=== PATIENT | female | born 1955 | race Caucasian/White ===

== ENCOUNTER 2018-04-15 13:31 | Outpatient (CLI) | payer BC | END 2018-04-15 13:32 | disposition home or self-care (01) | LOC: BICMAMMO 13:31 | PROVIDERS: ATTEND Obstetrics & Gynecology | DX: Z13.820 Encounter for screening for osteoporosis (principal); M81.0 Age-related osteoporosis without current pathological fracture; M85.859 Other specified disorders of bone density and structure, unspecified thigh; M85.88 Other specified disorders of bone density and structure, other site | CPT/HCPCS: 77080 ==

== ENCOUNTER 2018-05-21 06:47 | Day surgery (SDC) | payer BC ==
[2018-05-16 11:28] VITALS: BMI 30.1
[2018-05-21] MEDS ORDERED: Levofloxacin 500 mg/D5W 100 ml Premix Bag ONE (10:20)
[2018-05-21] MEDS ORDERED: Isosulfan Blue 50 MG/5 ML VIAL ONE (10:40)
[2018-05-21] MEDS ORDERED: Bupivacaine/Epinephrine 0.25% 30 ML VIAL ONE (10:40)
[2018-05-21] MEDS ORDERED: Fentanyl 100 MCG/2 ML VIAL ONE ×3 (10:47→12:53)
[2018-05-21] MEDS ORDERED: Midazolam HCl 2 mg/2 ml Vial ONE (10:47)
--- NOTE | 2018-05-21 11:41 | NM ---
NUCLEAR MEDICINE LYMPHOSCINTIGRAPHY: HISTORY: Right breast cancer. COMPARISON: None. TECHNIQUE: The patient was administered 0.440 millicuries of technetium 99m filtered sulfur colloid subcutaneous ly. FINDINGS: There is evidence of a sentinel lymph node in the right axilla. IMPRESSION: Right axillary sentinel lymph node. POS: [facility]
--- NOTE | 2018-05-21 14:51 | OP ---
DATE OF PROCEDURE: 05/21/2018 PREOPERATIVE DIAGNOSIS: Right breast cancer. SURGEON: Jorje Jimenez M.D. PROCEDURE PERFORMED: Lymphoscintigraphy, sentinel node biopsy and partial mastectomy. INDICATIONS: This is a 63-year-old female who on recent mammogram was found to have a new mass in th e inferior right breast at the 6 o'clock position. Core biopsy was positive for adenocarcinoma. FINDINGS: Two sentinel nodes were found. They were both negative by touch prep. The breast specime n did contain the clips and lesions by specimen mammography. PROCEDURE IN DETAIL: After informed consent was obtained, patient was taken to the operating room an d given general endotracheal anesthesia. She has undergone placement of radionucleotide as well as t he needle localization wire in Radiology. Lymphazurin 3 mL was infiltrated subareolar. Her right br east was prepped and draped in usual fashion. The Neoprobe was used and a baseline count of 12 was f ound. Transcutaneous counts of 25 were found in the right axilla. A transverse axillary incision wa s performed. Subcu divided sharply. The deltopectoral fascia was incised. A node with in vivo coun ts of 55 was found. This was blue and it was dissected out. Efferent and afferent lymphatics were l igated with 3-0 Vicryl ties. Ex vivo counts is 75, this was sent as sentinel node 1. There were res idual counts of about 18-20. A second node was found. This was dissected out. Efferent and afferen t lymphatics were ligated. The node sent as sentinel node #2. All residual counts were less than 5. Then, a triangular skin incision was performed in the midline of the right breast. Subcutaneous di vided sharply and the needle was found. It was brought through the lower skin into the field of the incision. This breast tissue was divided down to the fascia in a triangular manner and then excised off of the pectoralis fascia. The specimen was basically marked with the skin anterior, the needle i nferior, it was sent to mammography, which revealed it did contain both the clip and the lesion, sent to pathology for further analysis. Hemostasis was achieved with electrocautery. The breast was toby sed. The triangle was closed as reverse T. The superior portion was closed with interrupted 3-0 Greg ryl, then inferiorly transversely with interrupted 3-0 Vicryl and then Steri-Strips applied. By now, the lymph node came back both lymph nodes were negative by touch prep. Subcutaneous reapproximated with interrupted 3-0 Vicryl and skin closed with a running 4-0 Rapide. Steri-Strips applied. Steril e bandage applied. The patient tolerated the procedure well and was transferred to recovery in good condition. Sponge and needle count verified correct x2.
--- NOTE | 2018-05-21 15:23 | MMO ---
RIGHT BREAST NEEDLE LOCALIATION: HISTORY: Right breast cancer. FINDINGS: Successful right breast needle localization. A single 5 cm [place] needle and wire were used to perfor m the needle localization. The needle and wire were adjacent to both surgical clips. TECHNIQUE: Consent obtained to perform a right breast needle localization for surgery. The right breast was pool luated. Both surgical clips were identified. Under CC compression and via an inferior approach, a s tonja 5 cm [place] needle was placed, such that it was adjacent to both surgical clips. Wire position was confirmed in the lateral medial projection. The wire was deployed. A post deployment image was obtained. The images were marked. The patient tolerated the procedure well. There were no immediat e or post procedure complications. Of note, 1% Lidocaine, buffered with sodium bicarbonate, was used for local anesthesia. The right breast was prepped and draped in the usual sterile fashion. SPECIMEN RADIOGRAPH: The single specimen demonstrates the wire and both clips in the radiograph. Fi ndings were conveyed to Dr. Jimenez at the time of presentation. IMPRESSION: Successful needle localization of the right breast. POS: [facility]
== END 2018-05-21 14:25 | disposition home or self-care (01) ==
LOC: SDC 06:47
PROVIDERS: ATTEND Surgery
PROC: 0HBT0ZZ Excision of Right Breast, Open Approach (ICD-10-PCS; principal; 2018-05-21)
PROC: 07B50ZX Excision of Right Axillary Lymphatic, Open Approach, Diagnostic (ICD-10-PCS; principal; 2018-05-21)
DX: C50.811 Malignant neoplasm of overlapping sites of right female breast (principal); I10 Essential (primary) hypertension; Z79.899 Other long term (current) drug therapy; Z88.0 Allergy status to penicillin; Z17.1 Estrogen receptor negative status [ER-]
CPT/HCPCS: 19281; 76098; 78195; 88307; 88331; 88332; 88334; 88342; 96374; A9541; J1956; J2250; J3010; Q9968

== ENCOUNTER 2018-06-18 10:44 | Day surgery (SDC) | payer BC ==
[2018-06-17 11:53] VITALS: BMI 30.1
[2018-06-18 11:41] LABS: #Eosinphils 0.1 thou/uL (0.0-0.7); #Monocytes 0.4 thou/uL (0.11-0.59); #Neutrophils 3.9 thou/uL (1.40-6.50); %Basophils 0.5 % (0.0-1.0); %Eosinophils 1.4 % (0.0-10.0); %Monocytes 6.8 % (0.0-10.0); %Neutrophils 73.4 % (42.0-75.0); Hemoglobin 13.8 g/dL (12.0-16.0); Mean Corpuscular HGB CONC 32.6 g/dL (32.0-36.0); Mean Corpuscular Hemoglobin 28.5 pg (27.0-31.0); Mean Corpuscular Volume 87.5 fL (78.0-98.0); Mean Platelet Volume 8.9 fL (7.4-10.4); Platelet Count 256 thou/uL (130-400); Red Blood Cell (RBC) Count 4.85 mill/uL (4.20-5.40); White Blood Cell (WBC) Count 5.3 thou/uL (4.8-10.8)
[2018-06-18 12:07] LABS: ALT (SGPT) 15 U/L (8-55); AST (SGOT) 21 U/L (5-34); Albumin 4.2 g/dL (3.4-4.8); Alkaline Phosphatase 67 U/L (40-150); Anion Gap 11 mmol/L (10-20); BUN (Urea Nitrogen) 20 mg/dL (9.8-20.1); Bilirubin, Total 0.6 mg/dL (0.2-1.2); Calc. Creatinine Clearance 90 mL/min (70-130); Calcium 9.5 mg/dL (7.8-10.44); Carbon Dioxide 24 mmol/L (23-31); Chloride 102 mmol/L (98-107); Estimated GFR-MDRD 73; Globulin 2.9 g/dL (2.4-3.5); Glucose 108 mg/dL (80-115); Potassium 4.5 mmol/L (3.5-5.1); Protein, Total 7.1 g/dL (6.0-8.3); Sodium 132 mmol/L (136-145)
[2018-06-18] MEDS ORDERED: Midazolam HCl 2 mg/2 ml Vial ONE (12:17)
[2018-06-18] MEDS ORDERED: CEFAZOLIN/Water 2 GM/20 ML SYRINGE ONE (12:17)
[2018-06-18] MEDS ORDERED: Bupivacaine HCl 0.5%/Epinephrine 1:200,000/PF 30 ml Vial ONE (12:40)
[2018-06-18] MEDS ORDERED: Lidocaine 2% PF Inj 2 ML VIAL ONE (12:41)
[2018-06-18] MEDS ORDERED: Bupivacaine/Epinephrine 0.25% 30 ML VIAL ONE (12:41)
[2018-06-18] MEDS ORDERED: Fentanyl 100 MCG/2 ML VIAL ONE (12:46)
[2018-06-18] MEDS ORDERED: Levofloxacin 500 mg/D5W 100 ml Premix Bag ONE (12:53)
--- NOTE | 2018-06-18 14:44 | OP ---
PREOPERATIVE DIAGNOSIS: Right breast cancer with positive superior margin. SURGEON: Jorje Jimenez M.D. PROCEDURE PERFORMED: MediPort placement, left subclavian, reexcision of biopsy site, right breast. INDICATIONS: A 63-year-old female who underwent a needle localization lumpectomy with sentinel node biopsy had a positive superior margin, also needs access for chemotherapy. FINDINGS: I had a hard time getting the wire to go down into the superior vena cava, had to redo at a couple times and finally was able to be successful to get a good placement of the catheter in the superior vena cava. There was a defined seroma cavity which allowed me to be accurate on reexcision margins. PROCEDURE: After informed consent was obtained, the patient was taken to the operating room, started with the MediPort. Her chest and breasts were prepped and draped in usual fashion. The patient was placed in Trendelenburg position and local anesthesia infiltrated subcutaneously and deep and introd ucer needle was inserted in left subclavian with good backflow of venous blood. J-wire threaded easi ly. The fluoroscopy was then used that showed the wire going where I wanted it and a transverse ches t wall incision was performed. The subcu divided sharply. The fascia grasped down to the fascia. T hen a tunneling device was used to connect the two tunnels and the catheter brought through the tunne l. It was connected to the MediPort and the MediPort secured to the chest wall with interrupted 2-0 Prolene suture. Then the catheter was cut to size and the peel-away introducer inserted over the wir e. The wire was removed and the catheter inserted through the peel-away introducer. Then fluoroscop y again performed, but the catheter was not going down into the superior vena cava, it went straight across into the brachiocephalic, tried aspirating, really was very good flow through the port. Under fluoroscopy, I was able to redirect that catheter down into the superior vena cava and reflowed ever ything, no kinks access the port. Good backflow of venous blood, flushed easily with heparinized cece ine. Subcutaneous reapproximated with interrupted 3-0 Vicryl. Skin closed with a running subcuticul ar 4-0 Rapide. Steri-Strips applied. Sterile bandage applied. I then moved to the breast. Local a nesthesia infiltrated subcutaneously and deep. An incision was made in the inferior breast through t he old incision. Subcutaneous divided sharply down to the seroma cavity. The seroma cavity was exci sed with emphasis towards the superior and posterior aspects that area with some normal tissue was ex cised and marked with a blue suture superior, a black suture lateral, and a white suture anterior, se nt to pathology. Now after that was excised, I saw the remaining inferior and posterior seroma capsu le still there, so I wound up taking that out as a second specimen. Hemostasis was achieved utilizin g electrocautery and interrupted [id number] of 3-0 Vicryl. The subcu was reapproximated with i nterrupted 3-0 Vicryl. The skin closed with running subcuticular 4-0 Rapide. Steri-Strips applied. Sterile bandage applied. The patient tolerated the procedure well and was transferred to recovery i n good condition. Sponge and needle count verified correct x2.
--- NOTE | 2018-06-18 15:47 | RAD ---
SINGLE VIEW OF THE CHEST: Comparison: None. History: Mediport placement. FINDINGS: Single view of the chest shows normal sized cardiomediastinal silhouette. There is a left subclavian Mediport with its tip in the superior vena cava. No pneumothorax is seen. There is no evidence of consolidation, mass, or pleural effusion. IMPRESSION: Status post Mediport placement without evidence of complication. POS: [facility]
[2018-06-18] MEDS ORDERED: PROPOFOL 200 MG/20 ML VIAL ONE (17:32)
[2018-06-18] MEDS ORDERED: Ondansetron HCl/PF 4 MG/2 ML Vial ONE (17:32)
[2018-06-18] MEDS ORDERED: ePHEDrine/0.9% NaCl/PF SYRINGE 50 mg/10 ml ONE (17:32)
[2018-06-18] MEDS ORDERED: PHENYLEPHRINE-NS 100 MCG/ML 10 ML SYRINGE ONE (17:32)
[2018-06-18] MEDS ORDERED: Ketorolac Tromethamine 30 MG/ML VIAL ONE (17:32)
[2018-06-18] MEDS ORDERED: Dexamethasone 20 MG/5 ML VIAL ONE (17:32)
[2018-06-18] MEDS ORDERED: Lidocaine 1% PF 5 ML VIAL ONE (17:32)
== END 2018-06-18 16:24 | disposition home or self-care (01) ==
LOC: SDC 10:44
PROVIDERS: ATTEND Surgery
PROC: 0HBT0ZZ Excision of Right Breast, Open Approach (ICD-10-PCS; principal; 2018-06-18)
PROC: 02HV33Z Insertion of Infusion Device into Superior Vena Cava, Percutaneous Approach (ICD-10-PCS; principal; 2018-06-18)
DX: C50.911 Malignant neoplasm of unspecified site of right female breast (principal); Z88.0 Allergy status to penicillin
CPT/HCPCS: 36415; 71045; 80053; 85025; 88307; 88341; 88342; C1788; J0670; J1100; J1642; J1885; J1956; J2001; J2250; J2405; J2704; J3010

== ENCOUNTER → 2018-07-28 | Day surgery (SDC) | payer BC ==
[2018-07-25 14:55] VITALS: BMI 30.1
[~2018-07-28] MED LIST: Bupivacaine HCl 0.5%/Epinephrine 1:200,000/PF 30 ml Vial ONE; Dexamethasone 20 MG/5 ML VIAL ONE; Famotidine/PF 20 mg/2ml Vial ONE; Fentanyl 100 MCG/2 ML VIAL ONE; Ketorolac Tromethamine 30 MG/ML VIAL ONE; Levofloxacin 500 mg/D5W 100 ml Premix Bag ONE; Lidocaine 1% PF 5 ML VIAL ONE; Metoclopramide HCl 10 MG/2 ML VIAL ONE; Midazolam HCl 2 mg/2 ml Vial ONE; Ondansetron PF 4 MG/2 ML Vial ONE; PROPOFOL 200 MG/20 ML VIAL ONE; ePHEDrine/0.9% NaCl/PF SYRINGE 50 mg/10 ml ONE
[2018-07-28 09:16] LABS: #Basophils 0.1 thou/uL (0.0-0.2); #Eosinphils 0.1 thou/uL (0.0-0.7); #Lymphocytes 1.1 thou/uL (1.20-3.40); #Monocytes 0.4 thou/uL (0.11-0.59); #Neutrophils 4.2 thou/uL (1.40-6.50); %Basophils 0.9 % (0.0-1.0); %Eosinophils 1.4 % (0.0-10.0); %Lymphocytes 18.6 % (21.0-51.0); %Monocytes 6.8 % (0.0-10.0); %Neutrophils 72.3 % (42.0-75.0); Hemoglobin 14.5 g/dL (12.0-16.0); Mean Corpuscular HGB CONC 32.5 g/dL (32.0-36.0); Mean Corpuscular Hemoglobin 28.1 pg (27.0-31.0); Mean Corpuscular Volume 86.3 fL (78.0-98.0); Mean Platelet Volume 9.1 fL (7.4-10.4); Platelet Count 262 thou/uL (130-400); RBC Distribution Width 12.8 % (11.5-14.5); Red Blood Cell (RBC) Count 5.16 mill/uL (4.20-5.40); White Blood Cell (WBC) Count 5.8 thou/uL (4.8-10.8)
--- NOTE | 2018-07-28 10:32 | OP ---
PREOPERATIVE DIAGNOSIS: Breast cancer with positive lateral margin. SURGEON: Jorje Jimenez M.D. PROCEDURE PERFORMED: Reexcision of left breast lateral margin. INDICATIONS: This is a 63-year-old female who has breast cancer at the central left breast, has a po sitive lateral left margin. FINDINGS: Good seroma cavity found, lateral half was removed of the seroma cavity including some nor mal appearing breast tissue. PROCEDURE IN DETAIL: After informed consent was obtained, the patient was taken to the operating mary m and given general endotracheal anesthesia placed in the supine position. Left breast was prepped a nd draped in usual fashion. Local anesthesia infiltrated subcutaneously and deep. A linear incision was performed through the old scar. Subcutaneous divided sharply down to the seroma cavity. The la teral aspect of the seroma cavity was fully excised, marked with a black suture superior, blue suture anterior, white suture lateral and sent to pathology for further analysis. Hemostasis was achieved with electrocautery. Breast parenchyma reapproximated with interrupted 3-0 Vicryl suture, skin close d with a running subcuticular 4-0 Rapide. Steri-Strips applied. Sterile bandage applied. The patie nt tolerated the procedure well and was transferred to recovery in good condition. Sponge and needle count verified correct x2.
== END ==
LOC: SDC 08:22
PROVIDERS: ATTEND Surgery
PROC: 0HBT0ZZ Excision of Right Breast, Open Approach (ICD-10-PCS; principal; 2018-07-28)
DX: C50.111 Malignant neoplasm of central portion of right female breast (principal); I10 Essential (primary) hypertension; Z79.899 Other long term (current) drug therapy; Z88.0 Allergy status to penicillin
CPT/HCPCS: 85025; 88307; 89060; J0131; J0670; J1100; J1885; J1956; J2001; J2250; J2405; J2704; J2765; J3010; S0028

== ENCOUNTER 2021-03-16 13:52 | Outpatient (CLI) | payer BC | END 2021-03-16 13:53 | disposition home or self-care (01) | LOC: BICMAMMO 13:52 | PROVIDERS: ATTEND Internal Medicine Hematology & Oncology | DX: R92.8 Other abnormal and inconclusive findings on diagnostic imaging of breast (principal); Z85.3 Personal history of malignant neoplasm of breast | CPT/HCPCS: 77066; G0279 ==

== ENCOUNTER 2022-05-08 09:21 | Outpatient (CLI) | payer MEDICARE | END 2022-05-08 09:22 | disposition home or self-care (01) | LOC: BICMAMMO 09:21 | PROVIDERS: ATTEND Internal Medicine Hematology & Oncology | DX: N63.0 Unspecified lump in unspecified breast (principal); C50.511 Malignant neoplasm of lower-outer quadrant of right female breast; R92.8 Other abnormal and inconclusive findings on diagnostic imaging of breast | CPT/HCPCS: 19083; 88305; 88341; 88342; G0279 ==

== ENCOUNTER 2022-06-25 08:04 | Outpatient (CLI) | payer MEDICARE ==
[2022-06-25] MEDS ORDERED: Iopamidol 370 76% 100 ML VIAL ONE (14:25)
== END 2022-06-25 08:05 | disposition home or self-care (01) ==
LOC: CT 08:04
PROVIDERS: ATTEND Internal Medicine Hematology & Oncology
DX: C50.511 Malignant neoplasm of lower-outer quadrant of right female breast (principal); I10 Essential (primary) hypertension
CPT/HCPCS: 71260; 74177; 82565; Q9967

== ENCOUNTER 2022-07-04 09:34 | Outpatient (CLI) | payer MEDICARE | END 2022-07-04 09:35 | disposition home or self-care (01) | LOC: NM 09:34 | PROVIDERS: ATTEND Internal Medicine Hematology & Oncology | DX: C50.919 Malignant neoplasm of unspecified site of unspecified female breast (principal); M19.90 Unspecified osteoarthritis, unspecified site | CPT/HCPCS: 78306; A9503 ==

== ENCOUNTER 2022-11-15 09:26 | Outpatient (CLI) | payer MEDICARE | END 2022-11-15 09:27 | disposition home or self-care (01) | LOC: BICMRI 09:26 | PROVIDERS: ATTEND Surgery | DX: C50.919 Malignant neoplasm of unspecified site of unspecified female breast (principal); N63.15 Unspecified lump in the right breast, overlapping quadrants | CPT/HCPCS: A9577; C8908 ==

== ENCOUNTER 2023-08-19 08:58 | Outpatient (CLI) | payer MEDICARE | END 2023-08-19 08:59 | disposition home or self-care (01) | LOC: BICMAMMO 08:58 | PROVIDERS: ATTEND Internal Medicine | DX: Z08 Encounter for follow-up examination after completed treatment for malignant neoplasm (principal); N63.10 Unspecified lump in the right breast, unspecified quadrant; Z85.3 Personal history of malignant neoplasm of breast | CPT/HCPCS: 76642; 77065; G0279 ==

== ENCOUNTER 2023-10-04 09:34 | Outpatient (CLI) | payer MEDICARE | END 2023-10-04 09:35 | disposition home or self-care (01) | LOC: BICMAMMO 09:34 | PROVIDERS: ATTEND Internal Medicine | DX: Z13.820 Encounter for screening for osteoporosis (principal); M81.0 Age-related osteoporosis without current pathological fracture; M85.88 Other specified disorders of bone density and structure, other site | CPT/HCPCS: 77080 ==

== ENCOUNTER 2024-02-19 09:54 | Outpatient (CLI) | payer MEDICARE | END 2024-02-19 09:55 | disposition home or self-care (01) | LOC: BICMAMMO 09:54 | PROVIDERS: ATTEND Internal Medicine Hematology & Oncology | DX: Z08 Encounter for follow-up examination after completed treatment for malignant neoplasm (principal); N63.20 Unspecified lump in the left breast, unspecified quadrant; Z85.3 Personal history of malignant neoplasm of breast | CPT/HCPCS: 76642; 77065; G0279 ==